=== PATIENT | male | born 1945 | race Caucasian/White ===

== ENCOUNTER 2017-12-05 16:01 | Emergency (ER) | payer MEDICARE, OTHER ==
[2017-12-05] MEDS ORDERED: NS 0.9% 1000 ML* 1,000 ML IV ONE (16:22)
--- NOTE | 2017-12-05 16:35 | ED ---
Head Injury - HPI Summary HPI Summary: This patient is a 72 year old M presenting to [facility] accompanied by his with a chief complaint of left-sided facial swelling since 12/04/17. He endorses pain after eating something very sour 3-4 days ago. Then, on 12/04/17 at noon, he felt as if gland is blocked/sx worsened. He endorses fever, chills, and dry mouth when at [facility] being seen by Dr. Moctezuma, and currently. Pt notes he had taken ibuprofen before temperature measurement and it was still over 101. He denies ear pain and discharge from salivary glands. PMHx polycythemia. Tx for past several years control sx well. - History Of Current Complaint Chief Complaint: EDFacialInjury Stated Complaint: POSS INFECTION Time Seen by Provider: 12/05/17 16:13 Hx Obtained From: Patient Mechanism Of Injury: Other - infection Onset/Duration: Started Days Ago, Atraumatic, Still Present Onset of Pain: Prior to Arrival Severity Currently: Mild Severity Initially: Mild Pain Intensity: 3 Pain Scale Used: 0-10 Numeric Location of Head Injury: Other: - left sided mandible/face Location: Diffuse Aggravating Factor(s): Eating - very sour food Associated Signs And Symptoms: Swelling, Fever, Other: - chills - Allergies/Home Medications Allergies/Adverse Reactions: Allergies Allergy/AdvReac Type Severity Reaction Status Date / Time No Known Allergies Allergy Verified 12/05/17 16:08 PMH/Surg Hx/FS Hx/Imm Hx Endocrine/Hematology History: Reports: Hx Bone Marrow Disease - POLYCYTHEMIA / MANAGED BY DR. PHILLIPS Cardiovascular History: Reports: Hx Hypertension - CONTROL WITH MEDS, Other Cardiovascular Problems/Disorders - CHOLESTEROL CONTROL WITH MED Respiratory History: Denies: Hx Lung Cancer GI History: Reports: Other GI Disorders - DIVERTICULOSIS/DIVERTICULITIS History: Reports: Other Problems/Disorders - SLIGHTLY ENLARGED PROSTATE Sensory History: Denies: Hx Contacts or Glasses, Hx Legally Blind, Hx Deafness, Hx Hearing Aid Opthamlomology History: Denies: Hx Contacts or Glasses, Hx Legally Blind EENT History: Denies: Hx Deafness Psychiatric History: Denies: Hx Autism, Hx Schizophrenia - Cancer History Hx Chemotherapy: Yes - HYDROXYUREA TO TREAT POLYCYTHEMIA - Surgical History Surgery Procedure, Year, and Place: TONSILLECTOMY A CHILD,. 2009 OPEN REPAIR RIGHT INGUINAL HERNIA WITH MESH, [facility]. COLONOSCOPY Hx Anesthesia Reactions: No Infectious Disease History: No Infectious Disease History: Denies: Traveled Outside the [place] in Last 30 Days - Family History Known Family History: Positive: Cardiac Disease, Other - [place] - Social History Occupation: Retired Lives: With Family Alcohol Use: Daily Alcohol Amount: 1-2 GLASSES WINE Hx Substance Use: No Substance Use Type: Reports: None Hx Tobacco Use: Yes Smoking Status (MU): Former Smoker Type: Cigarettes Amount Used/How Often: OFF AND ON Have You Smoked in the Last Year: No Review of Systems Positive: Fever, Chills Negative: Ear Ache Positive: no symptoms reported Positive: Arthralgia - mandible, Edema - left face, mandible All Other Systems Reviewed And Are Negative: Yes Physical Exam - Summary Physical Exam Summary: Appearance: Well appearing, no pain distress Skin: warm, dry, reflects adequate perfusion Head/face: swelling of left side of face and angle of mandible, tender, firm consistency Eyes: EOMI, RACHEAL ENT: normal Neck: supple, non-tender Respiratory: CTA, breath sounds present Cardiovascular: RRR, pulses symmetrical Abdomen: non-tender, soft Bowel: present Musculoskeletal: strength/ROM intact. swelling of left side of face and angle of mandible, tender, firm consistency Neuro: normal, sensory motor intact, A&Ox3 Triage Information Reviewed: Yes Vital Signs On Initial Exam: Initial Vitals Temp Pulse Resp BP Pulse Ox 99.2 F 88 18 153/60 96 12/05/17 16:04 12/05/17 16:04 12/05/17 16:04 12/05/17 16:04 12/05/17 16:04 Vital Signs Reviewed: Yes Diagnostics - Vital Signs Vital Signs Temp Pulse Resp BP Pulse Ox 12/05/17 16:04 99.2 F 88 18 153/60 96 - Laboratory Result Diagrams: 12/05/17 16:32 12/05/17 16:32 Lab Statement: Any lab studies that have been ordered have been reviewed, and results considered in the medical decision making process. - CT Neck CT Interpretation: Positive (See Comments) CT Interpretation Completed By: Radiologist - 1. Findings consistent with left parotitis with extensive inflammatory change in the left anterior neck and reactive left jugular chain lymph nodes. No abscess or vascular thrombosis identified. 2. Additional enlargement of left submandibular gland which may be reactive. Dr. Echavarria has reviewed this report. Re-Evaluation - Re-Evaluation First Eval Re-Evaluation Time: 19:25 Change: Unchanged Comment: Discussed (-) for stone, discharge with ABx, follow up with ENT. Head Injury Course/Dx Course Of Treatment: A 72-year-old M presents to the ED with a CC of left-sided facial swelling and pain since 12/04/17 at noon. (+) swelling, pain, dry mouth, fever, chills. (-) ear pain, salivary gland discharge. took ibuprofen 2 hours before temperature was taken and still measured at 101. A CT neck reveals 1. Findings consistent with left parotitis with extensive inflammatory change in the left anterior neck and reactive left jugular chain lymph nodes. No abscess or vascular thrombosis identified. 2. Additional enlargement of left submandibular gland which may be reactive. In the ED course, pt was given nl saline and omnipaque. Pt shows low H and H, high neut %, low lymph %, low Na, low Cl, and high BUN. - Diagnoses Differential Diagnosis/HQI/PQRI: Contusion, Other - parotitis Provider Diagnoses: Parotitis - Physician Notifications Discussed Care Of Patient With: Jose Alberto Yarbrough Time Discussed With Above Provider: 19:26 Instructed by Provider To: Other - Recommends Abx and discharge. Discharge - Sign-Out/Discharge Documenting (check all that apply): Patient Departure - discharge - Discharge Plan Condition: Stable Disposition: HOME Prescriptions: Amoxicillin/Clavulanate TAB* [Augmentin TAB 875*] 875 mg PO BID #20 tab Patient Education Materials: Sialoadenitis (ED) Referrals: Jose Alberto Yarbrough MD [Medical Doctor] - 3 Days Additional Instructions: Return to the emergency department for any new or worsening symptoms. - Billing Disposition and Condition Condition: STABLE Disposition: Home - Attestation Statements Document Initiated by Kelliibshelley: Yes Documenting Scribe: Lopez Wild Provider For Whom Letty is Documenting (Include Credential): Dr. Lio Echavarria MD Scribe Attestation: Lopez Gong scribed for Dr. Lio Echavarria MD on 12/05/17 at 1939. Scribe Documentation Reviewed: Yes Provider Attestation: The documentation as recorded by the Lopez wang accurately reflects the service I personally performed and the decisions made by me, Dr. Lio Echavarria MD
[2017-12-05 16:51] LABS: ABS Basophils 0 10^3/ul (0-0.2); ABS Eosinophils 0 10^3/ul (0-0.6); ABS Lymphocytes 0.4 10^3/ul (1.0-4.8); ABS Monocytes 0.5 10^3/ul (0-0.8); ABS Neutrophils 7.6 10^3/ul (1.5-7.7); ABS Nucleated RBC 0 10^3/ul; Eosinophil % 0.2 % (0-6); Hematocrit 36 % (42-52); Hemoglobin 12.9 g/dl (14.0-18.0); Lymphocyte % 4.7 % (25-47); Mean Corpuscular HGB Conc 36 g/dl (31-36); Mean Corpuscular Hemoglobin 41 pg (27-31); Mean Corpuscular Volume 115 fL (80-94); Mean Platelet Volume 7.1 um3 (7.4-10.4); Nucleated Red Blood Cells % 0; Platelet Count 205 10^3/ul (150-450); Red Blood Count 3.16 10^6/ul (4.00-5.40); Red Cell Distribution Width 14 % (10.5-15); White Blood Count 8.5 10^3/ul (3.5-10.8)
[2017-12-05 16:59] LABS: INR 0.94 (0.77-1.02)
[2017-12-05 17:02] LABS: EGFR Non-African American 94.5 (>60)
[2017-12-05] MEDS ORDERED: Iohexol 300* (CONTRAST) 10 ML SDV IV ONE (17:52)
--- NOTE | 2017-12-05 19:11 | RAD ---
EXAM: CT Neck Without And With Intravenous Contrast CLINICAL HISTORY: 72 years old, male; Signs and symptoms; Mass, lump, or swelling in neck; Additional info: Enlarged parotod gland/parotitits TECHNIQUE: Axial computed tomography images of the neck without and with intravenous contrast. All CT scans at this facility use at least one of these dose optimization techniques: automated exposure control; mA and/or kV adjustment per patient size (includes targeted exams where dose is matched to clinical indication); or iterative reconstruction. Coronal and sagittal reformatted images were created and reviewed. CONTRAST: 50 mL of OMNIPAQUE administered intravenously. COMPARISON: No relevant prior studies available. FINDINGS: Oropharynx: Soft tissue asymmetry noted in left aspect of the oropharynx. No organized abscess. Evaluation of the oral cavity and oropharynx is limited by streak artifact from dental hardware. Hypopharynx: Unremarkable. Larynx: Unremarkable. Normal epiglottis. Trachea: Unremarkable. Retropharyngeal space: Unremarkable. Submandibular/parotid glands: The left parotid gland is enlarged and enhancing with stranding in the adjacent fat. No evidence of thrombophlebitis or thrombosis of adjacent vessels. The Left submandibular gland is enlarged with adjacent fat stranding. Right submandibular gland is normal. No abscess. Thyroid: Unremarkable. No enlarged or calcified nodules. Bones/joints: No acute fracture or aggressive osseous lesions Soft tissues: Inflammatory change and fluid fluid tracks inferiorly from the left parotid along the anterior aspect of the left neck to the level of the thoracic inlet with enlargement of the left sternocleidomastoid and lateral pterygoid muscles Vasculature: Within normal limits. Lymph nodes: Several prominent left jugular chain and submandibular lymph nodes are present, likely reactive. Lung apices: Unremarkable as visualized. IMPRESSION: 1. Findings consistent with left parotitis with extensive inflammatory change in the left anterior neck and reactive left jugular chain lymph nodes. No abscess or vascular thrombosis identified. 2. Additional enlargement of left submandibular gland which may be reactive.
[2017-12-05] MEDS ORDERED: Piperacillin/Tazobac ADVAN(*) 3.375 GM in NS 0.9% 100 ML* 100 ML IVPB ONE (19:16)
[2017-12-05] MEDS ORDERED: Amoxicillin/Clavulanate TAB* 875 MG PO ONE (19:30)
[2017-12-05 19:54] VITALS: BP 139/78
== END 2017-12-05 19:53 | disposition home or self-care (01) ==
LOC: ED 16:01
DX: K11.20 Sialoadenitis, unspecified (principal); R60.9 Edema, unspecified; Z87.891 Personal history of nicotine dependence
CPT/HCPCS: 36415; 70492; 80053; 83605; 85025; 85610; 85730; 87040; 96365; 99283; A9270-GY; Q9967

== ENCOUNTER 2018-02-16 14:10 | Emergency (ER) | payer MEDICARE, OTHER ==
[2018-02-16 14:24] VITALS: BP 174/93
--- NOTE | 2018-02-16 15:59 | UC ---
Skin Complaint HPI - HPI Summary HPI Summary: 72 y/o male presents to the urgent care c/o tick bite in his left groin he removed yesterday. Thick was engorged and he thinks it was there for more than 48hrs. This morning he woke up w/ malaise and a big round rash on his upper left thigh. He has had Hx of tick bite in the past and sometimes has taken prophylactic treatment. He is traveling in a few days to [facility] and is concerned w/ Lyme disease and request ABX treatment. Pt states mild joint pain, but denies fever, BARRIENTOS, chest pain, abdominal pain, N/v/D. - History of Current Complaint Chief Complaint: UCSkin Time Seen by Provider: 02/16/18 15:59 Stated Complaint: TICK Hx Obtained From: Patient Onset/Duration: Gradual Onset, Lasting Days - 3 days, Still Present, Worse Since - today Skin Exposure Onset/Duration: Days Ago - 3 days Timing: Constant Onset Severity: Mild Current Severity: Mild Pain Intensity: 3 Pain Scale Used: 0-10 Numeric Location: Discrete - left groin and left thigh rash Character: Pruritus, Redness Aggravating Factor(s): Touch Alleviating Factor(s): Nothing Associated Signs & Symptoms: Positive: Chills, Rash - left thigh, Tenderness - mild. Negative: Nausea, Vomiting, Numbness, Fever Related History: Possible Reaction to: Insect - tick bite - Allergy/Home Medications Allergies/Adverse Reactions: Allergies Allergy/AdvReac Type Severity Reaction Status Date / Time No Known Allergies Allergy Verified 02/16/18 14:24 Review of Systems All Other Systems Reviewed And Are Negative: Yes Constitutional: Positive: Chills, Fatigue Skin: Positive: Rash - tick bite on left groin and red patch rash in left thigh Eyes: Positive: Negative ENT: Positive: Negative Respiratory: Positive: Negative Cardiovascular: Positive: Negative Gastrointestinal: Positive: Negative Motor: Positive: Negative Neurovascular: Positive: Negative Musculoskeletal: Positive: Arthralgia Neurological: Positive: Negative Psychological: Positive: Negative Is Patient Immunocompromised?: No PMH/Surg Hx/FS Hx/Imm Hx Previously Healthy: Yes Endocrine History: Dyslipidemia Other Endocrine History: Polycethemia Cardiovascular History: Hypertension - Surgical History Surgical History: Yes Surgery Procedure, Year, and Place: TONSILLECTOMY A CHILD,. 2009 OPEN REPAIR RIGHT and left INGUINAL HERNIA WITH MESH, [facility]. COLONOSCOPY - Family History Known Family History: Positive: Cardiac Disease, Hypertension Family History: [place] - Social History Occupation: Retired Lives: With Family Alcohol Use: Daily Alcohol Amount: 1-2 GLASSES WINE Substance Use Type: None Smoking Status (MU): Former Smoker Type: Cigarettes Amount Used/How Often: OFF AND ON Have You Smoked in the Last Year: No When Did the Patient Quit Smoking/Using Tobacco: 2005 Physical Exam - Summary Physical Exam Summary: Vital Signs Reviewed: Yes General: well developed, well nourished male sitting in the examining table w/o any apparent distress. Eyes: Positive: Conjunctiva Clear - PERRLA, EOMI ENT: Positive: Normal ENT inspection, Hearing grossly normal, Pharynx normal, TMs normal Neck: Positive: Supple, Nontender, No Lymphadenopathy Respiratory: Positive: Chest nontender, Lungs clear, Normal breath sounds Cardiovascular: Positive: RRR, No Murmur, Pulses Normal Abdomen Description: Positive: Nontender, No Organomegaly, Soft. Negative: CVA Tenderness (R), CVA Tenderness (L) Bowel Sounds: Positive: Present Musculoskeletal: Positive: Strength Intact, ROM Intact, No Edema Neurological Exam: Normal Psychological Exam: Normal Skin: Positive: rashes - left side of pubic area w/ a erythematous tick bite tender to palpation and dorsal side of the proximal left thigh w/ an erythematous patch w/ a central clearance and classical bull's eye lesions, about 5cmx 6.0cm in size,. non tender to palpation. no swelling or drainage observed. Triage Information Reviewed: Yes Vital Signs: Initial Vital Signs Temp 96.6 F 02/16/18 14:19 Pulse 84 02/16/18 14:19 Resp 18 02/16/18 14:19 BP 174/93 02/16/18 14:19 Pulse Ox 100 02/16/18 14:19 Course/Dx - Course Course Of Treatment: 72 y/o male presents to the urgent care c/o tick bite in his left groin he removed yesterday. Thick was engorged and he thinks it was there for more than 48hrs. This morning he woke up w/ malaise and a big round rash on his upper left thigh. He has had Hx of tick bite in the past and sometimes has taken prophylactic treatment. He is traveling in a few days to [facility] and is concerned w/ Lyme disease and request ABX treatment. Pt states mild joint pain, but denies fever, BARRIENTOS, chest pain, abdominal pain, N/v/D.Hx obtained.Pt w/ left side of pubic area w/ a erythematous tick bite tender to palpation and dorsal side of the proximal left thigh w/ an erythematous patch w / a central clearance and classical bull's eye lesions, about 5cmx 6.0cm in size ,. non tender to palpation. no swelling or drainage observed on examination. Pt probably w/ Lyme Disease on examination. Pt Rx Doxycycline PO . Pt strongly advised to f/u with Dr Rivas or PCP for further management. Pt's BP is elevated today advised to decrease salt in diet, monitor BP and f/u with PCP for further management. Pt understood and agreed with plan of care. - Differential Diagnoses - Skin Complaint Differential Diagnoses: Abscess, Cellulitis, Contact Dermatitis, Local Allergic Reaction, Tick Born Illness, Urticaria, Other - insect bite, bee sting - Diagnoses Provider Diagnoses: 1- Lyme disease. 2-Tick bite. 3- Uncontrolled HTN Discharge - Sign-Out/Discharge Documenting (check all that apply): Patient Departure - D/c home All imaging exams completed and their final reports reviewed: No Studies - Discharge Plan Condition: Stable Disposition: HOME Prescriptions: DOXYcycline CAP(*) [DOXYcycline 100MG CAP(*)] 100 mg PO BID #28 cap Patient Education Materials: Lyme Disease (ED), Low-Sodium Diet (ED) Referrals: Daniel Arreola MD [Primary Care Provider] - 2 Weeks Additional Instructions: 1- Please take full course of antibiotic to avoid resistance. Please apply Bacitracin ointment around Tick bite as directed 2- F/u with DR Rivas or a PCP in 2 week for further management in Lyme Disease 3- Your BP is elevated today. please decrease salt in your diet, monitor BP and if it continues to be elevated please f/u with your PCP for further management - Billing Disposition and Condition Condition: STABLE Disposition: Home
== END 2018-02-16 16:51 | disposition home or self-care (01) ==
LOC: UCEAST 14:10
DX: S30.861A Insect bite (nonvenomous) of abdominal wall, initial encounter (principal); A69.20 Lyme disease, unspecified; I10 Essential (primary) hypertension; Z87.891 Personal history of nicotine dependence; W57.XXXA Bitten or stung by nonvenomous insect and other nonvenomous arthropods, initial encounter; Y92.9 Unspecified place or not applicable
CPT/HCPCS: 99212; G0463